=== PATIENT | female | born 1980 | race Caucasian/White ===

== ENCOUNTER 2017-03-21 17:35 | Inpatient (IN) | payer BC ==
[~2017-03-21] VITALS: Ht 160 cm; Wt 105.5 kg
[2017-03-21] MEDS ORDERED: SOD CHLORIDE 0.9% 1,000 ML IV STA (17:45)
[2017-03-21] MEDS ORDERED: morphine 4 MG/ML VIAL IV STA (17:45)
[2017-03-21] MEDS ORDERED: ONDANSETRON 4 MG INJ IV STA ×2 (17:45→22:44)
[2017-03-21] MEDS ORDERED: LORAZEPAM 2 MG INJ IV ONE ×2 (18:30→20:00)
[2017-03-21] MEDS ORDERED: morphine 10 MG INJ IV ONE (18:30)
[2017-03-21 18:34] LABS: ADD SCAN DIFF NO
[2017-03-21 18:38] LABS: BASOPHILS % 0.2 % (0.0-2.0); HEMATOCRIT 40.6 % (37.0-47.0); HEMOGLOBIN 13.5 g/dl (12.0-16.0); LYMPHOCYTES # 1.2 10^3/ul (0.8-2.9); LYMPHOCYTES % 8.5 % (15.0-51.0); MEAN CORPUSCULAR HEMOGLOBIN 28.6 pg (29.0-33.0); MEAN CORPUSCULAR HGB CONC 33.3 g/dl (32.0-37.0); MEAN PLATELET VOLUME 9.7 fl (7.4-10.4); MONOCYTE # 0.6 10^3/ul (0.3-0.9); MONOCYTES % 3.8 % (0.0-11.0); NEUTROPHIL # 12.6 10^3/ul (1.6-7.5); PLATELET COUNT 388 10^3/UL (140-415); RED BLOOD COUNT 4.72 10^6/ul (4.20-5.40); WHITE BLOOD COUNT 14.5 10^3/ul (4.8-10.8)
[2017-03-21 18:57] LABS: ALBUMIN 4.8 g/dl (3.3-4.9)
[2017-03-21] MEDS ORDERED: METOCLOPRAMIDE 10 MG INJ IV STA (18:57)
[2017-03-21] MEDS ORDERED: DIPHENHYDRAMINE 50 MG INJ IV STA (18:57)
[2017-03-21 18:58] LABS: POTASSIUM 3.3 mmol/L (3.5-5.1)
[2017-03-21 19:00] LABS: ALBUMIN/GLOBULIN RATIO 1.2; BILIRUBIN,INDIRECT 0.2 mg/dl (0-1.1); BILIRUBIN,TOTAL 0.2 mg/dl (0.2-1.3); CREATININE 0.75 mg/dl (0.44-1.00); TOTAL PROTEIN 8.8 g/dl (6.1-8.1)
[2017-03-21 19:01] LABS: CALCIUM 9.6 mg/dl (8.4-10.2)
[2017-03-21] MEDS ORDERED: ATEN-51 PO (19:22)
[2017-03-21] MEDS ORDERED: FLUT16SP17 NASAL (19:24)
[2017-03-21] MEDS ORDERED: LANS30CA PO (19:25)
[2017-03-21] MEDS ORDERED: ESCI10TA PO (19:26)
[2017-03-21] MEDS ORDERED: MORP30TA3 PO (19:29)
[2017-03-21] MEDS ORDERED: LEVO50TA83 PO (19:30)
[2017-03-21] MEDS ORDERED: TAPE200T PO (19:30)
[2017-03-21] MEDS ORDERED: TRAZ100T15 PO (19:32)
[2017-03-21] MEDS ORDERED: ZONI100C13 PO (19:33)
[2017-03-21] MEDS ORDERED: ALBU2.5V3 NEB (19:34)
[2017-03-21] MEDS ORDERED: BENZ-5 PO (19:35)
--- NOTE | 2017-03-21 19:35 | ERA ---
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 The patient describes multiple episodes of nonbloody nonbilious emesis that is intractable that started yesterday. She describes mild cramping abdominal discomfort but no diarrhea. She did have a loose stool 1-2 days ago. She denies abdominal surgical history. No recent sick contacts or antibiotics. Symptoms are moderate to severe. ROS All systems reviewed and are negative except as per history of present illness. Medications Home Meds Reported Medications Ondansetron (Ondansetron Odt) 4 Mg Tab.rapdis, 4 MG PO DAILY Y for NAUSEA AND/ OR VOMITING, TAB 03/21/17 Albuterol Sulfate* (Ventolin HFA*) 18 Gm Hfa.aer.ad, 2 PUFF INHALATION Q4H Y for SHORTNESS OF BREATH, #1 INHALER 03/21/17 Ibuprofen* (Ibuprofen*) 800 Mg Tab, 800 MG PO TID, TAB 03/21/17 Epinephrine (Epipen 2-[place]) 0.3 Mg/0.3 Ml Pen.injctr, 0.3 MG IM DIRECTED Y for ALLERGIC REACTION, #1 EA 03/21/17 Benzonatate* (Benzonatate*) 100 Mg Capsule, 100 MG PO TID Y for COUGH, CAP 03/21/17 Albuterol Sulfate* (Albuterol Sulfate* Neb) 0.083%-3 Ml Neb, 1.25 MG NEB Q4H Y for SHORTNESS OF BREATH, #30 VIAL 03/21/17 Zonisamide* (Zonegran*) 100 Mg Capsule, 100 MG PO DAILY, CAP 03/21/17 Trazodone Hcl* (Trazodone Hcl*) 100 Mg Tablet, 200 MG PO DAILY, #60 TAB 03/21/17 Levothyroxine Sodium* (Synthroid*) 50 Mcg Tablet, 50 MCG PO BEFORE BREAKFAST, # 30 TAB 03/21/17 Tapentadol Hcl (Nucynta ER) 200 Mg Tab.er.12h, 200 MG PO Q12, TAB 03/21/17 Morphine Sulfate (Morphine Sulfate ER) 30 Mg Tablet.er, 30 MG PO, TAB 03/21/17 Escitalopram Oxalate* (Lexapro*) 10 Mg Tablet, 30 MG PO DAILY, #30 TAB 03/21/17 Lansoprazole* (Lansoprazole*) 30 Mg Capsule.dr, 30 MG PO DAILY, CAP 03/21/17 Fluticasone Propionate* (Fluticasone Propionate* Nasal) 50 Mcg/[place] - 16 Gm [place].susp, 1 SPRAY NASAL BID, #1 BOTTLE 1 SPRAY TO EACH NOSTRIL TWICE DAILY 03/21/17 Atenolol* (Atenolol*) 25 Mg Tablet, 25 MG PO DAILY, #30 TAB 03/21/17 Allergies Allergies: Coded Allergies: Sulfa (Sulfonamide Antibiotics) (Unverified Allergy, Severe, SOB; HIVES; MOUTH SORES, 03/21/17) aspirin (Unverified Allergy, Unknown, HIVES; SWOLLEN EYES, 03/21/17) PMhx/Soc Hx Alcohol Use: Yes (socially) Hx Substance Use: No Hx Tobacco Use: No Smoking Status: Never smoker FmHx Family History: No diabetes Physical Exam Vitals Vital Signs Date Time Temp Pulse Resp B/P Pulse Ox O2 Delivery O2 Flow Rate FiO2 03/21/17 20:00 70 16 122/72 03/21/17 18:09 98.1 60 16 121/85 100 Physical Exam General: Dry heaving and retching Head: Normocephalic, atraumatic. Eyes: Pupils equally reactive, EOM intact ENT: Moist mucous membranes Neck: Supple, no lymphadenopathy Respiratory: Lungs clear bilaterally, no distress Cardiovascular: RRR, no murmurs, rubs, or gallops Abdominal: Soft, mild diffuse tenderness without rebound or guarding, no peritonitis : Deferred MSK: No edema, no unilateral swelling, 5/5 strength Neurologic: Alert and oriented, moving all extremities, normal speech, no focal weakness, no cerebellar signs Skin: No rash Psych: Normal mood Result Diagram: 03/21/17180603/21/171806 Results 24 hrs Laboratory Tests Test 03/21/17 18:07 White Blood Count 14.510^3/ul Red Blood Count 4.7210^6/ul Hemoglobin 13.5g/dl Hematocrit 40.6% Mean Corpuscular Volume 86.0fl Mean Corpuscular Hemoglobin 28.6pg Mean Corpuscular Hemoglobin Concent 33.3g/dl Red Cell Distribution Width 13.0% Platelet Count 07498^3/UL Mean Platelet Volume 9.7fl Neutrophils % 87.0% Lymphocytes % 8.5% Monocytes % 3.8% Eosinophils % 0.0% Basophils % 0.2% Nucleated Red Blood Cells % 0.0/100WBC Neutrophils # 12.610^3/ul Lymphocytes # 1.210^3/ul Monocytes # 0.610^3/ul Eosinophils # 0.010^3/ul Basophils # 0.010^3/ul Nucleated Red Blood Cells # 0.010^3/ul Sodium Level 141mmol/L Potassium Level 3.3mmol/L Chloride Level 102mmol/L Carbon Dioxide Level 20mmol/L Anion Gap 22 Blood Urea Nitrogen 13mg/dl Creatinine 0.75mg/dl Glucose Level 129mg/dl Calcium Level 9.6mg/dl Total Bilirubin 0.2mg/dl Direct Bilirubin 0.00mg/dl Indirect Bilirubin 0.2mg/dl Aspartate Amino Transf (AST/SGOT) 26IU/L Alanine Aminotransferase (ALT/SGPT) 32IU/L Alkaline Phosphatase 72IU/L Total Protein 8.8g/dl Albumin 4.8g/dl Globulin 4.00g/dl Albumin/Globulin Ratio 1.20 Lipase 55U/L Serum HCG, Qualitative NEGATIVE Current Medications Medications (Trade) Dose Ordered Sig/Kian Route PRN Reason Start Time Stop Time Status Last Admin Dose Admin Sodium Chloride (NS) 1,000 ml @ 1,000 mls/hr Q1H STAT IV 03/21/17 17:45 03/21/17 18:44 DC 03/21/17 18:13 Morphine Sulfate (morphine) 4 mg ONCE STAT IV 03/21/17 17:45 03/21/17 17:47 DC 03/21/17 18:13 Ondansetron HCl (Zofran Inj) 4 mg ONCE STAT IV 03/21/17 17:45 03/21/17 17:47 DC 03/21/17 18:13 Lorazepam (Ativan) 1 mg ONCE ONCE IV 03/21/17 18:30 03/21/17 18:31 DC 03/21/17 18:30 Morphine Sulfate (morphine) 6 mg ONCE ONCE IV 03/21/17 18:30 03/21/17 18:31 DC Metoclopramide HCl (Reglan) 10 mg ONCE STAT IV 03/21/17 18:57 03/21/17 18:58 DC 03/21/17 19:01 Diphenhydramine HCl (Benadryl) 25 mg ONCE STAT IV 03/21/17 18:57 03/21/17 18:58 DC 03/21/17 19:01 Dextrose/Sodium Chloride (D5-1/2ns) 500 ml ONCE ONCE IV 03/21/17 20:00 03/21/17 20:00 DC Dextrose/Sodium Chloride (D5-1/2ns) 500 ml ONCE ONCE IV 03/21/17 20:00 03/21/17 20:01 DC 03/21/17 19:49 Lorazepam (Ativan) 1 mg ONCE ONCE IV 03/21/17 20:00 03/21/17 20:01 DC 03/21/17 19:59 Procedures/MDM EKG, MONITORS, & DIAGNOSTIC IMAGING: CT abdomen and pelvis: Pending LAB INTERPRETATION: Leukocytosis MEDICAL DECISION MAKING: The patient presents with intractable vomiting. This is most likely a viral process however the patient does have diffuse abdominal tenderness. Concern for possible acute intra-abdominal process. I believe the benefits outweigh the risk for CT imaging of the abdomen and pelvis. The patient does have early stainless but no signs or symptoms concerning for acute vascular catastrophe. No indication for CTA. No headache and no signs or symptoms of intracranial hemorrhage. ER COURSE: The patient was given multiple doses of Zofran, pain medication, Ativan, Reglan and Benadryl with mild improvement of her symptoms. She is still has nausea. The patient has had multiple doses including Reglan and Benadryl, repeat dose of Ativan, morphine. She still has persistent nausea and vomiting. CT imaging is pending. However I believe the patient will benefit from hospitalization for intractable vomiting. This is possibly a viral process. The patient is agreeable. Symptoms only mildly improved currently. D5 half-normal saline was also provided to the patient. The patient was endorsed to Dr. Blake to follow-up on CT imaging and admit the patient. I kept the patient and/or family informed of laboratory and diagnostic imaging results throughout the emergency room course. DISPOSITION PLAN: Medical surgical admission for management of intractable vomiting CONSULTATION: Accepting care team and consultations: I discussed the current laboratory data, diagnostic imaging and emergency care provided. Admitting team: Dr. Bojorquez Admitting team indication: Insurance directed Departure Diagnosis: Primary Impression: Intractable nausea and vomiting Qualified Code: R11.2 - Intractable vomiting with nausea, unspecified vomiting type Additional Impressions: Generalized abdominal pain Aline-Danlos syndrome Condition: Stable DESI BAIRD MD March 21, 2017 19:35
[2017-03-21] MEDS ORDERED: EPIN0.3P4 IM (19:36)
[2017-03-21] MEDS ORDERED: IBUP800T25 PO (19:36)
[2017-03-21] MEDS ORDERED: ALBU18HF INHALATION (19:37)
[2017-03-21] MEDS ORDERED: ONDA4TAB14 PO (19:40)
[2017-03-21] MEDS ORDERED: DEXTROSE 5%-0.45% NACL 500 ML BAG IV ONE (20:00)
[2017-03-21] MEDS ORDERED: DEXTROSE 5%-0.45% NACL 1,000 ML BAG IV ONE (20:00)
--- NOTE | 2017-03-21 21:16 | RADRPT ---
PROCEDURE: CT Abdomen and Pelvis without contrast. CLINICAL INDICATION: Pain. TECHNIQUE: CT scan of the abdomen and pelvis was performed on a multidetector slice CT scanner. No intravenous contrast material was utilized. Sagittal and coronal reformatted images were obtained fr om the axial source images. Images were reviewed on a high-resolution PACS workstation. Exam CTDlvol = 23 mGy and DLP = 1305 Gy-cm. One of the following 3 dose reduction techniques were used: Automate d exposure control; adjustment of the mA and/or kV according to patient size; or use of iterative re construction technique. COMPARISON: None. FINDINGS: There is small fat containing periumbilical hernia. There are multiple os small surgical clips in t he subcutaneous fat and ventral pelvic wall of the pelvis. There is no obstruction or ileus. The a ppendix is well visualized and normal in size. There is no evidence for diverticulitis. There is a small amount of pelvic free fluid. The liver is overall normal in size. No intrahepatic lesions are identified. The gallbladder is part ially contracted. There probable small noncalcified gallstones within the gallbladder. Gallbladder is otherwise unremarkable.. There is no definite biliary ductal dilation. Pancreas is normal in hugo earance. The spleen is unremarkable. There are no adrenal masses. The aorta is normal caliber. Kidneys are normal in appearance without hydronephrosis, mass or calculus. There is no perinephric c ollection. Ureters are of normal caliber and without evidence for an obstructing calculus The urinar y bladder is normal in appearance. The uterus and ovaries are grossly unremarkable. Limited evaluation of the lung bases is unremarkable. The bones are unremarkable. IMPRESSION: 1. Partially contracted gallbladder with probable noncalcified gallstones. No evidence for biliary obstruction or acute cholecystitis. Correlation with right upper quadrant ultrasound is recommended if clinically indicated. 2. Small fat containing periumbilical hernia. No bowel obstruction or ileus. 3. Small amount of pelvic free fluid. 4. Otherwise no acute abnormality. RPTAT: HMVK .Jaime Schumacher MD, MD Date Time Electronically viewed and signed by .Jaime Schumacher MD, on 03/21/2017 21:15 .K/
[2017-03-21 22:27] LABS: ADD UMIC YES; URINE BILIRUBIN (Dip) 1+ (NEGATIVE); URINE BLOOD (Dip) 1+ (NEGATIVE); URINE COLOR YELLOW (YELLOW); URINE GLUCOSE (Dip) NEGATIVE (NEGATIVE); URINE KETONES (Dip) 3+ (NEGATIVE); URINE LEUKOCYTE ESTERASE (Dip) NEGATIVE (NEGATIVE); URINE NITRITE (Dip) NEGATIVE (NEGATIVE); URINE TOTAL PROTEIN (Dip) 1+ (NEGATIVE); URINE UROBILINOGEN (Dip) 0.2 E.U./dL (0.1-1.0)
[2017-03-21 22:56] LABS: ICTOTEST NEGATIVE (NEGATIVE); SQUAMOUS EPITHELIAL CELL,UR FEW; URINE RBCS 0-2 /HPF (0)
[2017-03-21] MEDS ORDERED: ONDANSETRON (ODT) 4 MG TAB ODT STA (23:06)
[2017-03-22] MEDS ORDERED: ONDANSETRON 4 MG INJ IV PRN ×2 (02:00→03:00)
[2017-03-22] MEDS ORDERED: ONDANSETRON 4 MG INJ IV ONE (02:42)
[2017-03-22] MEDS: morphine 4 MG/ML VIAL IV PRN ×5 (02:47→17:44)
[2017-03-22] MEDS: ONDANSETRON INJ 8 MG in SOD CHLORIDE 0.9% 50 ML IV PRN (02:48)
[2017-03-22] MEDS: SOD CHLORIDE 0.9% 1,000 ML IV SCH ×4 (03:30→15:51)
[2017-03-22] MEDS ORDERED: EPINEPHrine 0.1 MG/ML SYG INJ PRN (04:00)
[2017-03-22] MEDS ORDERED: NACL 0.9% 3 ML SYG IV SCH (04:00)
[2017-03-22] MEDS ORDERED: ALBUTEROL 18 GM INHALER INH PRN (04:00)
[2017-03-22] MEDS ORDERED: morphine 2 MG INJ IV PRN (04:00)
[2017-03-22] MEDS ORDERED: ALBUTEROL 0.083% (NEB) 2.5 MG/3 ML AMP NEB PRN (04:00)
--- NOTE | 2017-03-22 04:08 | HP ---
Date/Time of Note Date/Time of Note DATE: 03/22/17 TIME: 03:27 Assessment/Plan VTE Prophylaxis VTE Prophylaxis Intervention: heparin Assessment/Plan Chief Complaint/Hosp Course This is a 36-year-old female being admitted to the [facility] floor floor, #1 intractable vomiting: Viral gastroenteritis versus gallbladder etiology versus other GI etiology. At the current time patient's imaging studies do not show any acute infection of the gallbladder. However on CAT scan this does show to be contracted gallbladder right upper quadrant ultrasound is ordered. Will consult general surgery. Continue IV fluids, Keep patient n.p.o. except meds. #2 leukocytosis: White blood cell count 14, patient currently does not have a fever and at the present time there is no obvious source of infection. This very well could be reactive. We will continue to monitor this. CRP ordered #3 Ehler Danlos: Stable at the current time we will continue patient's pain medications of Nucynta, morphine IV as needed for pain. Will hold current home dose of oral morphine. #4 depression/anxiety: We will continue antidepressants. 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 Will monitor for any other autonomic dysfunction. #6 elevated anion gap. This likely at this time could be secondary to dehydration patient did receive fluid bolus in the ER will continue fluids at 100 cc an hour #7 IBS: Stable continue to follow.. #8 DVT GI prophylaxis, heparin, Protonix Problems: HPI/ROS Admit Date/Time Admit Date/Time 03/20/2014 Hx of Present Illness This is a 36-year-old female with a history of her Aline-Danlos who presents with nausea and vomiting. The patient describes multiple episodes of nonbloody nonbilious emesis that is intractable that started yesterday. She describes mild cramping abdominal discomfort and diarrhea which though she associates to be with her IBS. She denies abdominal surgical history. No recent sick contacts or antibiotics. She states that she recently flew from [place] and did have food on the airplane and then went out with her grandmother for dinner and 30 minutes after eating dinner last night she started vomiting. Patient does state that after having repeated episodes of vomiting she did feel weak. Patient states that as far she knows the food tasted fine and that her grandma did not get sick she is unsure whether possibly the airline food got her sick. Allergies sulfa, aspirin Medications: See MAR ROS Const: Negative for fever, chills, weight gain or weight loss, fatigue, or diaphoresis Eyes : No pain discharge or redness or change in visual acuity ENT: Nausea vomiting as stated above in the HPI, weakness Respiratory: No shortness of breath, cough, sputum, wheezing, or pleuritic pain Cardiovascular: No chest pain, palpitation, PND, or edema GI : Otherwise negative except for what is mentioned in the HPI Genitourinary: No dysuria, hematuria, flank pain , discharge or CVA tenderness Musculoskeletal: No joint pain, back pain, neck pain, restricted range of motion in neck or joints Skin: No rash, bruising or hives Neuro: No headache, dizziness, syncope, seizure, focal weakness Endocrine: No polyuria, polydipsia, temperature intolerance Psych: No hallucination, depression, anxiety or suicidal ideation PMH/Family/Social Past Medical History Parra disease, Ehler Danols type III, depression, anxiety, IBS Past Surgical History Bilateral mastectomy prophylactic, sinus surgeries Family History Significant Family History: no pertinent family hx Social History Alcohol Use: none Smoking Status: Never smoker Drug Use: none Exam/Review of Systems Vital Signs Vitals Vital Signs Date Time Temp Pulse Resp B/P Pulse Ox O2 Delivery O2 Flow Rate FiO2 5/5/17 01:00 98.2 78 18 110/68 100 Room Air Exam Exam General: This is a pleasant morbidly obese female, in mild distress The patient is alert oriented -3 HEENT: Atraumatic, normocephalic. The pupils are equal, round and reactive. Extraocular motor are intact Neck: Supple with full range of motion. No rigidity or meningismus Chest: Nontender Lungs: Clear to auscultation bilaterally no crackles rales or wheezing Heart: Normal S1-S2, Regular rhythm and rate. No murmur Abdomen: Soft, tenderness to palpation of the right upper quadrant., Normal bowel sounds Extremities: Normal to inspection, no edema no cyanosis Neurologic: Normal mental status, speech normal, cranial nerves II through XII are intact, motor and sensory are intact, no focal weakness Additional Comments CT of the abdomen pelvis 1. Partially contracted gallbladder with probable noncalcified gallstones. No evidence for biliary obstruction or acute cholecystitis. Correlation with right upper quadrant ultrasound is recommended if clinically indicated. 2. Small fat containing periumbilical hernia. No bowel obstruction or ileus. 3. Small amount of pelvic free fluid. 4. Otherwise no acute abnormality. Labs Result Diagram: 03/21/17180603/21/171806 Medications Medications Current Medications Morphine Sulfate 4 mg 4 mg Q4H PRN IV SEVERE PAIN 7-10 Last administered on 03/22t 02:47; Admin Dose 4 MG; Start 03/22/17 at 01:50 Ondansetron HCl/ Sodium Chloride (Zofran Inj/NS) 54 ml @ 108 mls/hr Q6H PRN IV NAUSEA AND/OR VOMITING; Start 03/22/17 at 02:10 Ondansetron HCl (Zofran Inj) 4 mg ONCE PRN IV MAY GIVE IF PREVIOUS DOSE IS I; Start 03/22/17 at 03:00 CHRISTIANE BEARD March 22, 2017 03:37
[2017-03-22] MEDS: PANTOPRAZOLE 40 MG INJ IV SCH (05:21)
[2017-03-22] MEDS: HEPARIN 5,000 UNIT/0.5 ML VIAL SC SCH ×3 (05:28→22:25)
[2017-03-22 05:44] LABS: ADD SCAN DIFF NO
[2017-03-22 05:55] LABS: BASOPHILS % 0.2 % (0.0-2.0); HEMATOCRIT 34.3 % (37.0-47.0); HEMOGLOBIN 11.4 g/dl (12.0-16.0); LYMPHOCYTES # 2.1 10^3/ul (0.8-2.9); MEAN CORPUSCULAR HEMOGLOBIN 28.5 pg (29.0-33.0); MEAN CORPUSCULAR HGB CONC 33.2 g/dl (32.0-37.0); MEAN CORPUSCULAR VOLUME 85.8 fl (82.0-101.0); MEAN PLATELET VOLUME 9.5 fl (7.4-10.4); MONOCYTE # 1.3 10^3/ul (0.3-0.9); MONOCYTES % 11.8 % (0.0-11.0); NEUTROPHIL # 7.5 10^3/ul (1.6-7.5); NEUTROPHILS % 68.6 % (39.0-77.0); PLATELET COUNT 321 10^3/UL (140-415); RED CELL DISTRIBUTION WIDTH 13.2 % (11.5-14.5); WHITE BLOOD COUNT 10.9 10^3/ul (4.8-10.8)
[2017-03-22 06:08] LABS: CHOL/HDL RATIO 1.8 RATIO
[2017-03-22 06:25] LABS: T3 UPTAKE 25.2 % (23.5-40.5)
[2017-03-22] MEDS ORDERED: LORAZEPAM 2 MG INJ ONE (06:41)
[2017-03-22] MEDS: LEVOTHYROXINE 50 MCG TAB PO SCH (06:45)
[2017-03-22] MEDS ORDERED: LORAZEPAM 2 MG INJ IV ONE (07:00)
--- NOTE | 2017-03-22 07:05 | EN ---
Date/Time of Note Date/Time of Note DATE: 03/22/17 TIME: 06:49 36-year-old female with history of Aline-Danlos syndrome, depression/anxiety, IBS and POTS (postural orthostatic tachycardia syndrome) presented to the ED yesterday commanding of abdominal pain with vomiting. CT scan revealed cholelithiasis and a contracted gallbladder but no pericholecystic fluid or other signs of cholecystitis. A small fat-containing periumbilical hernia without obstruction a small amount of pelvic free fluid. Otherwise no acute pathology. She was diagnosed with intractable vomiting and possible gastroenteritis. Admission is pending. She states that her pain is improved but is she is extremely anxious. Physical exam reveals an alert, moderately obese female anxious and crying in moderate distress. Abdominal is soft, nondistended with mild to moderate diffuse tenderness that localized to right upper quadrant. No rebound or guarding. Ativan 1 mg IV given and she feels much better. Received a call from the surgeon Dr Alfaro requesting an update of the patient's status. I informed him that ultrasound is pending and physical exam does not reveal any signs of peritonitis that would requiring immediate surgery. There is no leukocytosis or fever. Bilirubin, liver function tests and lipase are normal. Pancreatitis is unlikely. Patient is already evaluated by the hospitalist Dr. Bojorquez and admission is pending bed availability. Analgesics will be administered as per his orders. ANA ROSA VAIL MD March 22, 2017 07:05
--- NOTE | 2017-03-22 07:28 | RADRPT ---
AMENDMENT: 03/22/2017 7:28:29 LORI Parker M.d PROCEDURE: Ultrasound gallbladder CLINICAL INDICATION: Abdominal pain TECHNIQUE: Multiple real time sonographic images of the gallbladder and leny hepatis were obtaine d. COMPARISON: None FINDINGS: Layering echogenic and shadowing gallstones are seen in the gallbladder. There is no evidence of ga llbladder wall thickening or pericholecystic fluid. There is no sonographic Kaplan's sign. The common duct measures 4 mm in diameter. RPTAT: AA IMPRESSION: Cholelithiasis with no sonographic evidence of cholecystitis. .Dina Parker MD, MD Date Time Electronically viewed and signed by .Dina Parker MD, MD on 03/22/2017 07:28 .Dottie/
[2017-03-22 07:47] LABS: ALBUMIN 3.9 g/dl (3.3-4.9); ALBUMIN/GLOBULIN RATIO 1.3; BILIRUBIN,INDIRECT 0.2 mg/dl (0-1.1); BILIRUBIN,TOTAL 0.2 mg/dl (0.2-1.3); CALCIUM 8.8 mg/dl (8.4-10.2); CREATININE 0.73 mg/dl (0.44-1.00); POTASSIUM 3.3 mmol/L (3.5-5.1); TOTAL PROTEIN 6.9 g/dl (6.1-8.1)
[2017-03-22] MEDS: FLUTICASONE 0.05% 16 GM NAS SPRAY NASAL SCH ×2 (08:22→21:00)
[2017-03-22] MEDS: traZODone 100 MG TAB PO SCH (08:22)
[2017-03-22] MEDS: ESCITALOPRAM 10 MG TAB PO SCH (08:23)
[2017-03-22] MEDS: ATENOLOL 25 MG TAB PO SCH (08:23)
[2017-03-22] MEDS: ZONISAMIDE 100 MG CAP PO SCH (08:23)
[2017-03-22 14:30] VITALS: PULSE 96; TEMP 98.2
--- NOTE | 2017-03-22 15:30 | PN ---
DATE: 03/22/2017 MEDICINE FOLLOWUP NOTE SUBJECTIVE: The patient, Ms. Rosas, was admitted in the early hours. She still has significant na usea and vomiting, although it has improved from admission. OBJECTIVE: VITAL SIGNS: Temperature 98, pulse 96, blood pressure 119/78, O2 saturation 96% on room air. NECK: Supple. No JVD or lymphadenopathy. CARDIAC: S1, S2, no added sounds or murmurs. CHEST: Diminished air entry bilaterally. ABDOMEN: Soft, nontender. No guarding or rebound. EXTREMITIES: No cyanosis, clubbing, edema. NEUROLOGIC: Grossly intact. No focal deficits. IMAGING DATA: Ultrasound shows cholelithiasis but no cholecystitis. LABORATORY DATA: White count now 10.9, hemoglobin 11.4, platelets of 312. Chemistry: Potassium wa s 3.3. Liver function tests within normal limits. IMPRESSION AND PLAN: 1. Likely acute gastroenteritis. 2. History of Aline-Danlos syndrome. 3. Leukocytosis, likely secondary to above. 4. History of POTS disease. IMPRESSION AND PLAN: 1. Continue IV hydration. 2. Repeat labs in the a.m. 3. Encourage p.o. intake. 4. Anticipate discharge once tolerating p.o. Dictated By: MELISSA DIAZ/MORIS Conf#: [id number] DID#: [id number]
[2017-03-22 15:45] VITALS: BP 109/61; RESP 20
[2017-03-22 15:54] VITALS: Ht 160 cm; Wt 105.5 kg
--- NOTE | 2017-03-22 16:55 | CONS ---
DATE OF ADMISSION: 03/22/2017 DATE OF CONSULTATION: 03/22/2017 HISTORY OF PRESENT ILLNESS: Ms. Rosas is a 36-year-old female who presented to the [facility] Emergency Room today after complaining of a 3-day history of nausea, vomiting. She states her symptoms began on 03/20/2017. It was nonbloody, nonbilious. She does develop crampy abdominal pain as well as diarrhea. She does have a history of IBS. Her nausea and vomiting persisted, but her d iarrhea has stopped. There were some gallstones noted on an ultrasound. I was called for consultat ion. PAST MEDICAL HISTORY: Significant for IBS, Parra disease, Aline-Danlos, depression, anxiety. PAST SURGICAL HISTORY: She had a bilateral prophylactic mastectomy and sinus surgeries. ALLERGIES: NO KNOWN DRUG ALLERGIES. SOCIAL HISTORY: She denies drinking, drug use, or smoking. PHYSICAL EXAMINATION: GENERAL: She is a well-nourished, well-developed, obese female in no apparent distress. VITAL SIGNS: She is afebrile. Vital signs stable. CHEST: Clear to auscultation bilaterally. HEART: Regular rhythm. ABDOMEN: Soft, mildly distended with some slight tenderness to all four quadrants. LABORATORY DATA: Reveal a white count 11, hematocrit of 34, and platelets of 321. LFTs are within normal limits. Sodium 140, potassium 3.3, chloride 109, CO2 23, BUN and creatinine 12 and 0.7, and glucose 111. Her gallbladder ultrasound was positive for cholelithiasis without evidence of cholecy stitis. CT showed a contracted gallbladder. ASSESSMENT AND PLAN: Mr. Rosas is a 36-year-old female likely suffering from gastroenteritis. She does not have a surgical abdomen, and I do not think this is an acute issue with her gallbladder. Continue current care. Dictated By: ANNY VARGHESE/NTS Conf#: [id number] DID#: [id number]
[2017-03-22 19:40] VITALS: BP 107/63; RESP 20
[2017-03-22] MEDS: PHENOL 1.4% SOLN 180 ML BTL MT PRN (22:19)
[2017-03-23] MEDS: morphine 4 MG/ML VIAL IV PRN (01:27)
[2017-03-23] MEDS: ONDANSETRON INJ 8 MG in SOD CHLORIDE 0.9% 50 ML IV PRN ×2 (01:48→10:47)
[2017-03-23] MEDS: SOD CHLORIDE 0.9% 1,000 ML IV SCH ×4 (02:52→21:15)
[2017-03-23] MEDS: PHENOL 1.4% SOLN 180 ML BTL MT PRN ×3 (03:00→18:07)
[2017-03-23] MEDS: HYDROmorphONE 1 MG/ML SYG IV PRN ×5 (04:32→22:40)
[2017-03-23] MEDS: PANTOPRAZOLE 40 MG INJ IV SCH (05:34)
[2017-03-23] MEDS: METOCLOPRAMIDE 10 MG INJ IV SCH ×4 (05:34→23:58)
[2017-03-23] MEDS: LEVOTHYROXINE 50 MCG TAB PO SCH (05:37)
[2017-03-23] MEDS: HEPARIN 5,000 UNIT/0.5 ML VIAL SC SCH ×3 (05:41→21:08)
[2017-03-23 06:41] LABS: ADD SCAN DIFF NO
[2017-03-23 06:47] LABS: BASOPHILS % 0.4 % (0.0-2.0); EOSINOPHILS # 0.1 10^3/ul (0.0-0.5); EOSINOPHILS % 1.7 % (0.0-7.0); HEMOGLOBIN 10.7 g/dl (12.0-16.0); LYMPHOCYTES % 41.3 % (15.0-51.0); MEAN CORPUSCULAR HEMOGLOBIN 28.3 pg (29.0-33.0); MEAN CORPUSCULAR HGB CONC 32.4 g/dl (32.0-37.0); MEAN CORPUSCULAR VOLUME 87.3 fl (82.0-101.0); MEAN PLATELET VOLUME 9.5 fl (7.4-10.4); MONOCYTE # 0.5 10^3/ul (0.3-0.9); MONOCYTES % 10.7 % (0.0-11.0); NEUTROPHIL # 2.2 10^3/ul (1.6-7.5); NEUTROPHILS % 45.7 % (39.0-77.0); PLATELET COUNT 260 10^3/UL (140-415); RED BLOOD COUNT 3.78 10^6/ul (4.20-5.40); RED CELL DISTRIBUTION WIDTH 13.3 % (11.5-14.5); WHITE BLOOD COUNT 4.8 10^3/ul (4.8-10.8)
[2017-03-23 07:14] LABS: CREATININE 0.7 mg/dl (0.44-1.00); MAGNESIUM 1.9 mg/dl (1.7-2.5); PHOSPHORUS 2.6 mg/dl (2.5-4.9)
[2017-03-23 07:20] LABS: POTASSIUM 2.9 mmol/L (3.5-5.1)
[2017-03-23 07:34] VITALS: BP 105/63; RESP 16
[2017-03-23] MEDS ORDERED: POTASSIUM CHLORIDE (SR) 20 MEQ TAB PO STA (08:21)
[2017-03-23] MEDS ORDERED: TAPENTADOL 200 MG XX SCH (08:30)
--- NOTE | 2017-03-23 09:12 | PN ---
DATE: Ms. Rosas is now hospital day 1 for her intractable nausea. She was doing well until last night wh ere she developed nausea once again. OBJECTIVE: VITAL SIGNS: She is afebrile. Vital signs stable. ABDOMEN: Soft, nontender, nondistended. LABORATORY DATA: Today reveal a white count of 5, hematocrit of 33, platelets of 260. Potassium is 2.9. ASSESSMENT AND PLAN: Ms. Rosas is a 36-year-old female with intractable nausea and vomiting. ASSESSMENT AND PLAN: Based on her constellation of symptoms, I think that the likelihood of this be ing biliary colic is extremely low. If there is still concern, then I will order a HIDA scan with e jection fraction. Dictated By: ANNY VARGHESE/MORIS Conf#: [id number] DID#: [id number]
[2017-03-23] MEDS: ZONISAMIDE 100 MG CAP PO SCH (09:23)
[2017-03-23] MEDS: ATENOLOL 25 MG TAB PO SCH (09:23)
[2017-03-23] MEDS: ESCITALOPRAM 10 MG TAB PO SCH (09:23)
[2017-03-23] MEDS: traZODone 100 MG TAB PO SCH (09:23)
[2017-03-23] MEDS ORDERED: POTASSIUM CHLORIDE 250 ML IVPB ONE (09:30)
[2017-03-23] MEDS: FLUTICASONE 0.05% 16 GM NAS SPRAY NASAL SCH (10:47)
--- NOTE | 2017-03-23 10:58 | PN ---
Date/Time of Note Date/Time of Note DATE: 03/23/17 TIME: 10:56 Assessment/Plan VTE Prophylaxis VTE Prophylaxis Intervention: other Lines/Catheters IV Catheter Type (from [facility]): Peripheral IV Assessment/Plan Problems: (1) Hypokalemia Status: Acute Comment: Replace the potassium. (2) Intractable nausea and vomiting Status: Acute Comment: The vomiting is stopped she has still has some nausea but is decreasing. I concur with the general surgeon but this is not consistent with biliary disease even though she has gallstones visible on imaging. I believe is going on here is that she has a gastroenteritis from food poisoning. She needs 1 more day and then should be able to be discharged in the morning Qualifiers: Vomiting type: unspecified Qualified Code: R11.2 - Intractable vomiting with nausea, unspecified vomiting type Subjective 24 Hr Interval Summary Free Text/Dictation Patient primary complaint is discomfort from the IV potassium drip. She reports she still has some nausea although is less and has not been throwing up. She denies any abdominal pain Constitutional: no complaints Respiratory: no complaints Cardiovascular: no complaints Exam/Review of Systems Vital Signs Vitals Vital Signs Date Time Temp Pulse Resp B/P Pulse Ox O2 Delivery O2 Flow Rate FiO2 03/23/17 07:34 97.7 71 16 105/63 97 03/22/17 14:30 Room Air Intake and Output 03/22/17 03/22/17 03/23/17 15:00 23:00 07:00 Intake Total 520 ml 1474 ml Output Total 500 ml 1350 ml Balance 20 ml 124 ml Exam Constitutional: alert, oriented Neck: non-tender, supple Respiratory: clear to auscultation, normal air movement Cardiovascular: nl pulses, regular rate and rhythm Gastrointestinal: nl liver, spleen, non-tender, soft Results Result Diagram: 03/23/17 0558 03/23/17 0558 Results 24 hrs Laboratory Tests Test 03/23/17 05:58 White Blood Count 4.8 # Red Blood Count 3.78 L Hemoglobin 10.7 L Hematocrit 33.0 L Mean Corpuscular Volume 87.3 Mean Corpuscular Hemoglobin 28.3 L Mean Corpuscular Hemoglobin Concent 32.4 Red Cell Distribution Width 13.3 Platelet Count 260 Mean Platelet Volume 9.5 Neutrophils % 45.7 Lymphocytes % 41.3 Monocytes % 10.7 Eosinophils % 1.7 Basophils % 0.4 Nucleated Red Blood Cells % 0.0 Neutrophils # 2.2 Lymphocytes # 2.0 Monocytes # 0.5 Eosinophils # 0.1 Basophils # 0.0 Nucleated Red Blood Cells # 0.0 Sodium Level 137 Potassium Level 2.9 *L Chloride Level 110 Carbon Dioxide Level 21 Anion Gap 9 Blood Urea Nitrogen 7 Creatinine 0.70 Glucose Level 96 Calcium Level 8.0 L Phosphorus Level 2.6 Magnesium Level 1.9 Medications Medications Current Medications Ondansetron HCl 8 mg/Sodium Chloride 54 ml @ 108 mls/hr Q6H PRN IV NAUSEA AND/ OR VOMITING Last administered on 03/23/17 10:47; Admin Dose 108 MLS/HR; Start at 02:10 Sodium Chloride (NS) 1,000 ml @ 80 mls/hr [id number] IV Last administered on 02:52; Admin Dose 80 MLS/HR; Start 03/22/17 at 03:30 Atenolol (Tenormin) 25 mg DAILY PO Last administered on 03/23/17 09:23; Admin Dose 25 MG; Start 03/22/17 at 09:00 Escitalopram Oxalate (Lexapro) 30 mg DAILY PO Last administered on 03/23/17 09: 23; Admin Dose 30 MG; Start 03/22/17 at 09:00 Fluticasone Propionate (Flonase 0.05% Nasal) 1 spray BID NASAL Last administered on 03/23/17 10:47; Admin Dose 1 SPRAY; Start 03/22/17 at 09:00 Trazodone HCl (Desyrel) 200 mg DAILY PO Last administered on 03/23/17 09:23; Admin Dose 200 MG; Start 03/22/17 at 09:00 Zonisamide (Zonegran) 100 mg DAILY PO Last administered on 03/23/17 09:23; Admin Dose 100 MG; Start 03/22/17 at 09:00 Patient Own Medication 1 ea Q12 PO ; Start 03/23/17 at 11:30 Pantoprazole (Protonix Iv) 40 mg DAILY@06 IV Last administered on 03/23/17 05: 34; Admin Dose 40 MG; Start 03/22/17 at 06:00 Heparin Sodium (Porcine) (Heparin (5000 Units/0.5 ml)) 5,000 unit Q8 SC Last administered on 03/23/17 05:41; Admin Dose 5,000 UNIT; Start 03/22/17 at 06:00 Phenol (Chloraseptic Throat [place]) 2 spray Q2H PRN MT SORE THROAT Last administered on 03/23/17 03:00; Admin Dose 2 SPRAY; Start 03/22/17 at 20:30 Hydromorphone HCl (Dilaudid) 0.5 mg Q4H PRN IV PAIN Last administered on 09:26; Admin Dose 0.5 MG; Start 03/23/17 at 04:30 Metoclopramide HCl 10 mg 10 mg Q6 IV Last administered on 03/23/17 05:34; Admin Dose 10 MG; Start 03/23/17 at 06:00 Potassium Chloride (KCl 40 MEQ/250 ML NS) 250 ml @ 62.5 mls/hr ONCE ONCE IVPB Last administered on 03/23/17 09:35; Admin Dose 62.5 MLS/HR; Start 03/23/17 at 09:30; Stop 03/23/17 at 13:29 CHA COLLINS MD March 23, 2017 10:58
[2017-03-23] MEDS: NUCYNTA 200 MG PO SCH ×2 (12:32→22:40)
[2017-03-23 19:43] VITALS: BP 100/58; RESP 18
[2017-03-23] MEDS: QNASL NASAL SCH (21:06)
[2017-03-24] MEDS: HYDROmorphONE 1 MG/ML SYG IV PRN (02:37)
[2017-03-24] MEDS: SOD CHLORIDE 0.9% 1,000 ML IV SCH (05:30)
[2017-03-24 06:25] LABS: ALBUMIN 3.4 g/dl (3.3-4.9); ALBUMIN/GLOBULIN RATIO 1.06; BILIRUBIN,INDIRECT 0.1 mg/dl (0-1.1); BILIRUBIN,TOTAL 0.1 mg/dl (0.2-1.3); CALCIUM 8.7 mg/dl (8.4-10.2); CREATININE 0.73 mg/dl (0.44-1.00); TOTAL PROTEIN 6.6 g/dl (6.1-8.1)
[2017-03-24] MEDS: PANTOPRAZOLE 40 MG INJ IV SCH (06:39)
[2017-03-24] MEDS: METOCLOPRAMIDE 10 MG INJ IV SCH (06:39)
[2017-03-24] MEDS: HEPARIN 5,000 UNIT/0.5 ML VIAL SC SCH (06:41)
[2017-03-24] MEDS: LEVOTHYROXINE 50 MCG TAB PO SCH (06:41)
[2017-03-24 07:18] VITALS: BP 104/59; RESP 18
[2017-03-24] MEDS ORDERED: ACETAMINOPHEN 325 MG TAB PO STA (08:39)
--- NOTE | 2017-03-24 08:42 | PDOCDIS ---
Discharge Instructions DIAGNOSIS Discharge Diagnosis: Acute gastroenteritis; hypokalemia; Aline-Danlos CONDITION Patient Condition: Fair HOME CARE INSTRUCTIONS: Special Diet: 1800 ada,2 gm na ACTIVITY: Activity Restrictions: Do not operate Machinery Do not operate Power Tool FOLLOW UP/APPOINTMENTS Appointments Follow-up with home improvement contractor and primary care physician at return home to [facility] CHA COLLINS MD March 24, 2017 08:41
--- NOTE | 2017-03-24 08:45 | DS ---
Date/Time of Note Date/Time of Note DATE: 03/24/17 TIME: 08:43 Discharge Summary Admission/Discharge Info Admit Date/Time March 22, 2017 at 14:58 Discharge Date/Time 03/24/2017 Final Diagnosis Acute gastroenteritis with nausea and vomiting dehydration; hypokalemia; Aline- Danlos syndrome; asthma persistent moderate; Patient Condition: Fair Consults General surgery Procedures Abdominal ultrasound; abdominal pelvic CT scan Hx of Present Illness This is a 36-year-old female with a history of her Aline-Danlos who presents with nausea and vomiting. The patient describes multiple episodes of nonbloody nonbilious emesis that is intractable that started yesterday. She describes mild cramping abdominal discomfort and diarrhea which though she associates to be with her IBS. She denies abdominal surgical history. No recent sick contacts or antibiotics. She states that she recently flew from [place] and did have food on the airplane and then went out with her grandmother for dinner and 30 minutes after eating dinner last night she started vomiting. Patient does state that after having repeated episodes of vomiting she did feel weak. Patient states that as far she knows the food tasted fine and that her grandma did not get sick she is unsure whether possibly the airline food got her sick. Allergies sulfa, aspirin Medications: See MAR Hospital Course This is a 36-year-old female being admitted to the [facility] floor floor, #1 intractable vomiting: Viral gastroenteritis versus gallbladder etiology versus other GI etiology. At the current time patient's imaging studies do not show any acute infection of the gallbladder. However on CAT scan this does show to be contracted gallbladder right upper quadrant ultrasound is ordered. Will consult general surgery. Continue IV fluids, Keep patient n.p.o. except meds. #2 leukocytosis: White blood cell count 14, patient currently does not have a fever and at the present time there is no obvious source of infection. This very well could be reactive. We will continue to monitor this. CRP ordered #3 Eh[place] Danlos: Stable at the current time we will continue patient's pain medications of Nucynta, morphine IV as needed for pain. Will hold current home dose of oral morphine. #4 depression/anxiety: We will continue antidepressants. 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 Will monitor for any other autonomic dysfunction. #6 elevated anion gap. This likely at this time could be secondary to dehydration patient did receive fluid bolus in the ER will continue fluids at 100 cc an hour #7 IBS: Stable continue to follow.. #8 DVT GI prophylaxis, heparin, Protonix Her symptoms resolved nicely which included significant improvement once the potassium was corrected. She is now at a point where she can be discharged. She is tolerating oral dietary intake. She will be discharged home using her as needed Zofran. Please note she already had appointment see her category consultant back home in [facility]. She is discharged in improved condition she has no known communicable diseases her rehabilitation potential is good she is not hazard to herself or others she is competent for medical decision-making Home Meds Reported Medications Ondansetron (Ondansetron Odt) 4 Mg Tab.rapdis, 4 MG PO DAILY Y for NAUSEA AND/ OR VOMITING, TAB 03/21/17 Albuterol Sulfate* (Ventolin HFA*) 18 Gm Hfa.aer.ad, 2 PUFF INHALATION Q4H Y for SHORTNESS OF BREATH, #1 INHALER 03/21/17 Ibuprofen* (Ibuprofen*) 800 Mg Tab, 800 MG PO TID, TAB 03/21/17 Epinephrine (Epipen 2-[place]) 0.3 Mg/0.3 Ml Pen.injctr, 0.3 MG IM DIRECTED Y for ALLERGIC REACTION, #1 EA 03/21/17 Benzonatate* (Benzonatate*) 100 Mg Capsule, 100 MG PO TID Y for COUGH, CAP 03/21/17 Albuterol Sulfate* (Albuterol Sulfate* Neb) 0.083%-3 Ml Neb, 1.25 MG NEB Q4H Y for SHORTNESS OF BREATH, #30 VIAL 03/21/17 Zonisamide* (Zonegran*) 100 Mg Capsule, 100 MG PO DAILY, CAP 03/21/17 Trazodone Hcl* (Trazodone Hcl*) 100 Mg Tablet, 200 MG PO DAILY, #60 TAB 03/21/17 Levothyroxine Sodium* (Synthroid*) 50 Mcg Tablet, 50 MCG PO BEFORE BREAKFAST, # 30 TAB 03/21/17 Tapentadol Hcl (Nucynta ER) 200 Mg Tab.er.12h, 200 MG PO Q12, TAB 03/21/17 Morphine Sulfate (Morphine Sulfate ER) 30 Mg Tablet.er, 30 MG PO, TAB 03/21/17 Escitalopram Oxalate* (Lexapro*) 10 Mg Tablet, 30 MG PO DAILY, #30 TAB 03/21/17 Lansoprazole* (Lansoprazole*) 30 Mg Capsule.dr, 30 MG PO DAILY, CAP 03/21/17 Fluticasone Propionate* (Fluticasone Propionate* Nasal) 50 Mcg/[place] - 16 Gm [place].susp, 1 SPRAY NASAL BID, #1 BOTTLE 1 SPRAY TO EACH NOSTRIL TWICE DAILY 03/21/17 Atenolol* (Atenolol*) 25 Mg Tablet, 25 MG PO DAILY, #30 TAB 03/21/17 Pending Labs Laboratory Tests Test 03/24/17 05:00 03/24/17 05:10 Sodium Level 139mmol/L (135-144) Potassium Level 4.0mmol/L (3.5-5.1) Chloride Level 110mmol/L (97-110) Carbon Dioxide Level 25mmol/L (21-31) Anion Gap 8 (8-16) Blood Urea Nitrogen 7mg/dl (7-20) Creatinine 0.73mg/dl (0.44-1.00) Glucose Level 93mg/dl (70-220) Calcium Level 8.7mg/dl (8.4-10.2) Total Bilirubin 0.1mg/dl (0.2-1.3) Direct Bilirubin 0.00mg/dl (0.00-0.20) Indirect Bilirubin 0.1mg/dl (0-1.1) Aspartate Amino Transf (AST/SGOT) 40IU/L (15-46) Alanine Aminotransferase (ALT/SGPT) 49IU/L (13-69) Alkaline Phosphatase 52IU/L (42-121) Total Protein 6.6g/dl (6.1-8.1) Albumin 3.4g/dl (3.3-4.9) Globulin 3.20g/dl (1.3-3.2) Albumin/Globulin Ratio 1.06 Amylase Level 58U/L (11-123) Lipase 106U/L (23-300) Thyroid Stimulating Hormone (TSH) 8.710MIU/L (0.465-4.680) CHA COLLINS MD March 24, 2017 08:45
[2017-03-24] MEDS: QNASL NASAL SCH (08:46)
[2017-03-24] MEDS: NUCYNTA 200 MG PO SCH (08:46)
[2017-03-24] MEDS: traZODone 100 MG TAB PO SCH (08:50)
[2017-03-24] MEDS: ESCITALOPRAM 10 MG TAB PO SCH (08:50)
[2017-03-24] MEDS: ATENOLOL 25 MG TAB PO SCH (08:51)
[2017-03-24] MEDS ORDERED: ACETAMINOPHEN 325 MG TAB PO PRN (09:00)
[2017-03-24] MEDS ORDERED: ZONISAMIDE 100 MG CAP PO SCH (09:00)
== END 2017-03-24 11:20 | disposition home or self-care (01) | DRG 392 ==
LOC: E/R 17:35 → MS2 03-22 14:58
PROVIDERS: ADMIT Family Medicine; ATTEND Family Medicine
DX: K52.9 Noninfective gastroenteritis and colitis, unspecified (principal); A18.01 Tuberculosis of spine; Q79.6 Ehlers-Danlos syndromes; K58.9 Irritable bowel syndrome, unspecified; E86.0 Dehydration; E87.6 Hypokalemia; J45.909 Unspecified asthma, uncomplicated; F32.9 Major depressive disorder, single episode, unspecified; F41.9 Anxiety disorder, unspecified
CPT/HCPCS: 36415; 74176; 76705; 80048; 80053; 80061; 81001; 81003; 82150; 83036; 83605; 83690; 83735; 84100; 84436; 84443; 84479; 84703; 85025; 86140; 96372; 96374; 96375; 96376; C9113; J1170; J1200; J1644; J2060; J2270; J2405; J2765; J3480; J7030; J7042